=== PATIENT | female | born 1970 | race Caucasian/White ===

== ENCOUNTER 2023-01-01 09:52 | Outpatient (REF) | payer OTHER, SELFPAY ==
[2023-01-01 11:15] LABS: MANUAL DIFF FLAG NO
[2023-01-01 11:31] LABS: Basophils Percent Auto 0.5 % (0-2); Eosinophils Absolute Auto 0.1 X10*3/uL (0.0-0.4); Eosinophils Percent Auto 2.5 % (0-4); Hematocrit 39.5 % (37.0-47.0); Hemoglobin 12.9 g/dl (12.0-16.0); Imm Gran Abs Auto 0.01 X10*3/uL (0.00-0.03); Imm Gran Pct Auto 0.2 % (0.0-0.4); Lymphocytes Absolute Auto 1.5 X10*3/uL (1.2-4.9); Lymphocytes Percent Auto 26.6 % (20-40); Mean Corpuscular HGB Conc 32.7 g/dl (31.0-35.0); Mean Corpuscular Volume 88.8 fL (80.0-98.0); Mean Platelet Volume 10.5 fL (9.4-12.3); Monocytes Absolute Auto 0.3 X10*3/uL (0.1-1.2); Monocytes Percent Auto 5.3 % (2-11); Neutrophils Absolute Auto 3.6 x10*3/uL (2.0-8.3); Neutrophils Percent Auto 64.9 % (45-73); Platelet Count 204 X10*3/uL (160-400); Red Blood Count 4.45 X10*6/uL (4.20-5.50); White Blood Count 5.6 X10*3/uL (4.8-10.8)
[2023-01-01 11:37] LABS: Appearance Urine Cloudy; Color Urine Yellow; Glucose Urine UA Negative (Negative); Leukocyte Esterase Urine Negative (Negative); Nitrite Urine Negative (Negative); Urine Blood Negative (Negative); Urine Ketones Negative (Negative); Urine Protein Negative (Neg-Trace)
[2023-01-01 12:01] LABS: Alanine Aminotransferase 18 U/L (0-31); Albumin Level 4.2 g/dL (3.5-5.0); Alkaline Phosphatase 75 U/L (39-117); Anion Gap 12 (12-20); Aspartate Amino Transferase 19 U/L (5-31); Bilirubin Total 0.5 mg/dL (0.0-1.0); Blood Urea Nitrogen 13 mg/dL (9-16); Calcium 9.4 mg/dL (8.4-10.2); Carbon Dioxide 28 mmol/L (22-29); Chloride 106 mmol/L (96-108); Cholesterol 189 mg/dL; Estimated Glomerular Filt Rate > 60; Glucose Fasting 86 mg/dL (60-99); HDL Cholesterol 42 mg/dL; LDL Cholesterol Calculated 125 mg/dl; Potassium 4.3 mmol/L (3.3-5.1); Sodium 142 mmol/L (135-145); Total Protein 6.8 g/dL (6.5-8.0); Triglycerides 110 mg/dL
== END 2023-01-01 09:53 | disposition home or self-care (01) ==
LOC: HO.WFDLDS 09:52
PROVIDERS: Visit Provider Nurse Practitioner Family
DX: Z00.00 Encounter for general adult medical examination without abnormal findings (principal)
CPT/HCPCS: 36415; 80053; 80061; 81003; 84443; 85025

== ENCOUNTER 2023-03-18 10:16 | Outpatient (AMB) | payer OTHER, SELFPAY ==
[2023-03-18 10:19] VITALS: BP 126/68; PULSE 96; RESP 14; TEMP 36.6; O2SAT 99
--- NOTE | 2023-03-18 10:19 | MHC.PC.OV ---
Vital Signs 03/18/23 10:19 Height 5 ft 3 in BMI Reason not done Patient refused/unable BP 126/68 Blood Pressure Location Rt brachial Position Sitting Respiration 14 Pulse 96 Pulse Source Pulse Oximeter Temp 97.8 F Temp Source Temporal Artery Scan Pulse Oximetry (%) 99 Oxygen Delivery Method Room Air Intake Visit Reasons: [facility] sore throat x2 weeks Intake Note: Patient is here for a follow up from the emergency department at [facility] on 03/16/2023 for a sore throat. Patient was found to have acute pharyngitis with a negative rapid strep and a negative strep culture. Patient reports concerns for her sore throat x14 days. Patient reports seeing lumps on trhe back of her throat this morning. Patient reports symptoms of difficulty swallowing and eating due to pain. Patient reports taking 2 tylenol and 2 ibuprofen does not relieve the pain. Med Asst Required: No Accompanied by: Daughter Allergies No Known Allergies Allergy (Verified 03/18/23 10:58) Medication List - Last Reconciled 03/18/23 by Philly Goldberg CNP fluoxetine 40 mg PO DAILY gabapentin 800 mg PO TID hydroxyzine pamoate 25 mg PO BID PRN lurasidone 20 mg PO DAILY simvastatin 20 mg PO BEDTIME 30 days Tobacco use date assessed: 01/01/23 Dental Screening Dental Screen Date: 03/18/23 Did you have a dental visit in the last 12 months?: Yes Did you have a dental problem in the last 6 months where you did not have access to dental care?: No Was dental information given to patient?: Patient declined HPI HPI Comments History of Present Illness Details 52-year-old female presents for a follow-up visit She was recently evaluated at [facility] for sore throat on 03/16/2023. Rapid strep test and culture were negative. She was diagnosed with acute viral pharyngitis. She reports continued sore throat. She notes she noticed lumps to the back of her throat this morning. She reports associated pain with swallowing. She states she has had the pain for the past 2 weeks. She states her symptoms are refractory to Tylenol ibuprofen. No headache, fever, chills, body aches, fatigue, weakness. Denies sick contact. [facility] Social History Housing: House Patient Tobacco Use Status: Never used Tobacco e-Cigarette/Vaping Use: Never Used Substance Use Type: Marijuana service: No Current occupational status: disabled Current occupation: Disability Current occupational exposures/hazards: No Cognitive needs: No Hearing needs: No Vision needs: No Questionnaire Thrive Questionnaire Date Thrive assessed: 01/01/23 MEAGAN-7 AMB Questionnaire MEAGAN-7 Date MEAGAN - 7 assessed: 01/29/23 Source: Developed by Drs. Donnie Ohara, Nelsy Campa, Zafar Tejeda and colleagues, with an educational serg from [employer]. Review of Systems Const Details: Const Denies chills, Denies fatigue, Denies fever(s), Denies headache(s) and Denies weakness ENT Reports as per HPI Card Denies chest pain, Denies lightheadedness, Denies dyspnea and Denies other (Palpitations) Resp Denies cough, Denies dyspnea, Denies wheezing and Denies other ( shortness of breath) GI Denies abdominal pain, Denies melena, Denies hematochezia, Denies change in bowel habits, Denies dyspepsia and Denies nausea Denies hematuria and Denies dysuria Musc Denies abnormal gait, Denies myalgias, Denies arthralgias, Denies numbness and Denies tingling Skin/Breast Denies rash, Denies unusual bruising and Denies wounds Neuro Denies abnormal gait, Denies dizziness, Denies headache(s), Denies memory loss, Denies numbness, Denies Sensory deficit (Neuro), Denies tingling and Denies weakness Psych Denies anxiety, Denies depression, Denies memory loss Endo Denies cold intolerance, Denies fatigue, Denies heat intolerance, Denies polydipsia and Denies polyuria Aller/Immun Denies wheezing Physical exam (Primary Care) Vital Signs: Last Vital Signs Temp 97.8 F 03/18/23 10:19 Pulse 96 03/18/23 10:19 Resp 14 03/18/23 10:19 BP 126/68 03/18/23 10:19 Pulse Ox 99 03/18/23 10:19 Oxygen Delivery Method Room Air 03/18/23 10:19 Tobacco/Smoking Status: Tobacco use Status Tobacco use date assessed 01/01/23 03/18/23 10:19 Patient Tobacco Use Status Never used Tobacco 03/18/23 10:19 e-Cigarette/Vaping Use Never Used 03/18/23 10:19 Thrive Assessment: Date of Thrive Assessment Date Thrive assessed 01/01/23 03/18/23 10:19 Const Other: General: no acute distress and well developed Nutritional Appearance: well nourished Orientation/consciousness: patient oriented x3 HENMT Head is normocephalic Bilateral ear canal and TM are normal Nasal turbinates and oropharynx are pink and moist; tonsil without swelling, edema, patches, or exudate Sinuses are nontender with palpation No auricular or cervical lymphadenopathy Eyes General: appearance normal, both eyes and all related structures Pupils: Equal, round and reactive pupils present EOM: EOMs intact bilaterally Resp Effort & Inspection: normal respiratory effort Auscultation: clear to auscultation bilaterally Cardio Rate: regular rate Rhythm: regular rhythm Heart sounds: S1 normal heart sound present, S2 normal heart sound present, no gallops, no murmurs and no rubs GI Palpation (GI): No Abdominal aortic bruit present, Soft to palpation, nontender, No hepatosplenomegaly present and No Rebound tenderness present Auscultation: normal bowel sounds General: Yes no CVA tenderness Back/Spine/Pelvis Back: no CVA tenderness Cervical Spine: cervical ROM normal and No Cervical spine tenderness Thoracic/Lumbar Spine: thoraco-lumbar ROM normal, No pain with thoraco-lumbar ROM, No thoracic spinal tenderness and No lumbar spinal tenderness Extrem General: Yes normal to inspection, No edema and No calf tenderness Skin General: warm and dry. Normal skin color. Normal skin turgor Lesions: no lesions Rashes: no rashes Trauma: no lacerations or abrasions Wounds: no wounds Nails: normal Neuro General: patient oriented x3, gait normal and no focal neuro deficit Cranial nerves: Yes Equal, round and reactive pupils present Cognition (Neuro): normal cognition Gait exam (Neuro): Normal gait present Sensory Exam: No Sensory deficit (Neuro) Psych Appearance: grossly normal Affect: normal affect Attitude: cooperative Thought process: Normal thought process present Results AMB Rapid Strep AMB Rapid Strep Negative Last Edit by Nanette Love on 03/18/23 11:45 Results Reviewed Results Reviewed: Laboratory Last Values Strep Scn Rapid Clinic Negative 03/18/23 11:45 Assessment and Plan Assessment & Plan (1) Sore throat: Code(s): J02.9 - Acute pharyngitis, unspecified Plan: Negative rapid strep test No evidence of strep infection Likely viral pharyngitis although possible unknown bacterial pharyngitis Z-Roman ordered. Take as prescribed Continue to take Tylenol ibuprofen for pain or discomfort May gargle with salt water Adequate hydration encouraged Return with worsening or new symptoms Verbalized understanding and agreed with treatment plan. Orders: Orders AMB Rapid Strep Screen Today Z13.9 - Encounter for screening, unspecified Medications: New azithromycin (Zithromax Z-Roman) For 250 mg dose pack: take 500 mg today (day 1), then 250 mg for 4 days (days 2-5) PO 6 tabs 0RF Coding Level of Care Code Est Pt Level 3 (92779) Diagnoses Sore throat J02.9 Time Spent (min) 25
== END 2023-03-18 11:42 | disposition home or self-care (01) ==
PROVIDERS: PCP Nurse Practitioner Family; Visit Provider Nurse Practitioner Family
DX: J02.9 Acute pharyngitis, unspecified (principal)
CPT/HCPCS: 87880; 99213

== ENCOUNTER 2024-03-25 08:49 | Outpatient (REF) | payer OTHER, SELFPAY ==
[2024-03-25 11:08] LABS: MANUAL DIFF FLAG NO
[2024-03-25 11:18] LABS: Basophils Percent Auto 0.5 % (0-2); Eosinophils Absolute Auto 0.2 X10*3/uL (0.0-0.4); Eosinophils Percent Auto 3.1 % (0-4); Hematocrit 39.7 % (37.0-47.0); Hemoglobin 13.1 g/dl (12.0-16.0); Imm Gran Abs Auto 0.01 X10*3/uL (0.00-0.03); Imm Gran Pct Auto 0.2 % (0.0-0.4); Lymphocytes Absolute Auto 1.9 X10*3/uL (1.2-4.9); Lymphocytes Percent Auto 30.9 % (20-40); Mean Corpuscular Hemoglobin 29.7 pg (27.0-33.0); Mean Platelet Volume 10.4 fL (9.4-12.3); Monocytes Absolute Auto 0.3 X10*3/uL (0.1-1.2); Monocytes Percent Auto 5.3 % (2-11); Neutrophils Absolute Auto 3.7 x10*3/uL (2.0-8.3); Platelet Count 235 X10*3/uL (160-400); Red Blood Count 4.41 X10*6/uL (4.20-5.50); Red Cell Distribution Width 12.2 % (11.0-16.0); White Blood Count 6.2 X10*3/uL (4.8-10.8)
[2024-03-25 11:50] LABS: Alanine Aminotransferase 30 U/L (0-31); Albumin Level 4.4 g/dL (3.5-5.0); Alkaline Phosphatase 71 U/L (39-117); Anion Gap 10 (12-20); Aspartate Amino Transferase 25 U/L (5-31); Bilirubin Total 0.7 mg/dL (0.0-1.0); Blood Urea Nitrogen 14 mg/dL (9-16); Calcium 9.8 mg/dL (8.4-10.2); Carbon Dioxide 30 mmol/L (22-29); Chloride 105 mmol/L (96-108); Cholesterol 167 mg/dL (<200); Estimated Glomerular Filt Rate > 60; Glucose Fasting 92 mg/dL (60-99); HDL Cholesterol 40 mg/dL (>40); LDL Cholesterol Calculated 102 mg/dL (<100); Potassium 3.9 mmol/L (3.3-5.1); Sodium 141 mmol/L (135-145); Total Protein 7.3 g/dL (6.5-8.0); Triglycerides 128 mg/dL (<150)
[2024-03-25 12:06] LABS: TSH reflex Free T4 1.11 uIU/mL (0.32-4.0)
[2024-03-25 14:25] LABS: Appearance Urine Cloudy; Color Urine Yellow; Glucose Urine UA Negative (Negative); Leukocyte Esterase Urine Trace (Negative); Nitrite Urine Negative (Negative); PH >= 9.0 (5.0-9.0); UMIC TRIGGER UACC YES; Urine Blood Negative (Negative); Urine Ketones Negative (Negative); Urine Protein Trace mg/dL (Neg-Trace)
[2024-03-25 14:31] LABS: Bacteria Urine Trace (None Seen); Hyaline Casts Urine 0-2 /LPF (0-2); RBC Urine 0-2 /HPF (0-2); WBC Urine 0-5 /HPF (0-5)
[2024-03-25 14:55] LABS: Creatinine Urine 145.66 mg/dL; Microalbum/Creatinine Ratio Ur 4.1 ug/mg cr (<30)
== END 2024-03-25 08:50 | disposition home or self-care (01) ==
LOC: HO.WFDLDS 08:49
PROVIDERS: Visit Provider Nurse Practitioner Family
DX: Z00.00 Encounter for general adult medical examination without abnormal findings (principal)
CPT/HCPCS: 36415; 80053; 80061; 81001; 82043; 82570; 84443; 85025

== ENCOUNTER 2024-03-29 10:31 | Outpatient (AMB) | payer OTHER, SELFPAY ==
--- NOTE | 2024-03-29 10:33 | A.OFFPC_ITS ---
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 Is last menstrual period known: No Post menopausal: No Patient : No Allergies No Known Allergies Allergy (Verified 03/29/24 10:49) Medication List - Last Reconciled 03/29/24 by Philly Goldberg CNP fluoxetine 80 mg PO QAM hydroxyzine pamoate 25 mg PO BID PRN lurasidone 20 mg PO DAILY simvastatin 20 mg PO BEDTIME 30 days Tobacco use date assessed: 03/29/24 Dental Screening Dental Screen Date: 03/29/24 Did you have a dental visit in the last 12 months?: Yes Did you have a dental problem in the last 6 months where you did not have access to dental care?: No Was dental information given to patient?: Patient has dentist HPI HPI Comments History of Present Illness Details 53-year-old female presents for an exten ded physical exam She has past medical history significant for fibromyalgia, hyperlipidemia, obesity, generalized anxiety disorder, major depressive disorder, and bipolar disorder She admits to taking her medications as prescribed without adverse reactions She is followed by a therapist and psychiatrist at [facility], and her psychotropic medications are managed by Psychiatry. She sees her therapist weekly and ps ychiatrist every three months She notes that her father 8 months ago after suffering from chronic illness. Her mother had had a stroke 3 months after her father's . She reports significant stress and anxiety as a results of family issues. She notes that her mental health has not been great. She notes that she had a close relationship with her father and continues to have vivid dreams of him. His symptoms have been gradually improving She notes that she has been making healthy dietary changes, sleeps 4-5 hours nightly (she notes that some days are better than others). She exercise on her treadmill three times weekly and walks every other day She states that she has not had a menstrual cycle in over a year Nonsmoker. Does not drink alcohol. She smokes a couple of hits of cannabis every night and has been smoking for a long time She states she had colonoscopy 3 years ago at [facility]: normal. She will sign a consent to obtain records Her last mammogram was 2 year ago: normal She is unsure of her last pap smear test which was normal. 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 She has not received the shingrex vaccines and declines this [facility] Medical History (Updated 03/29/24 @ 11:43 by Philly Goldberg CNP) No pertinent family history No pertinent past medical history Surgical History (Updated 03/30/23 @ 14:59 by Nanette Love CMA) No pertinent past surgical history Family History (Updated 03/29/24 @ 10:44 by Manuela Del Angel) Sister Substance abuse FH: mental illness Mother FH: mental illness Social History Housing: House Patient Tobacco Use Status: Never used Tobacco e-Cigarette/Vaping Use: Never Used Substance Use Type: Marijuana service: No Current occupational status: disabled Current occupation: Disability Current occupational exposures/hazards: No Cognitive needs: No Hearing needs: No Vision needs: No Questionnaire PHQ-9 Over the last 2 weeks, how often have you been bothered by any of the following problems? 1. Little interest or pleasure in doing things: more than half the days 2. Feeling down, depressed, or hopeless: several days 3. Trouble falling or staying asleep, or sleeping too much: nearly every day 4. Feeling tired or having little energy: more than half the days 5. Poor appetite or overeating: nearly every day 6. Feeling bad about yourself - or that you are a failure or have let yourself or your family down: more than half the days 7. Trouble concentrating on things, such as reading the newspaper or watching television: nearly every day 8. Moving or speaking so slowly that other people could have noticed. Or the opposite - being so fidgety or restless that you have been moving around a lot more than usual: nearly every day 9. Thoughts that you would be better off or of hurting yourself in some way: not at all Total score: 19 Depression Screening Interpretation: Positive Depression Screening Follow-up: Existing condition and In treatment Depression Screening Done: Yes [id number] - PHQ-9 Billing: Yes Source: Developed by Drs. Donnie Ohara, Zafar Reeder and colleagues, with an educational serg from [email or web address]. Thrive Questionnaire Date Thrive assessed: 03/29/24 I am a: Patient What is your living situation today?: I have a steady place to live Within the past 12 months, did the food you bought not last and you didn't have the money to get more?: Never true Within the past 12 months, did you worry whether your food would run out before you got money to buy more?: Never true Do you have trouble paying for medicines?: No Do you have trouble getting transportation to medical appointments?: No Do you have trouble paying your heating and electricity bill?: Yes Do you have trouble taking care of your child, family member or friend?: No Do you have trouble with day-to-day activities such as bathing, preparing meals, shopping, managing finances, etc.?: Yes Are you currently unemployed and looking for a job?: Yes Are you interested in more education?: No Please select the resources that you would like help with: None Currently or been in a relationship where the following occur: No concerns reported THRIVE Score: 1 AUDIT C Alcohol Use Questionnaire (AUDIT-C) 1. How often do you have a drink containing alcohol?: Never Total Score: 0 Score Reviewed/Action Taken: Yes MEAGAN-7 AMB Questionnaire MEAAGN-7 Date MEAGAN - 7 assessed: 03/29/24 Feeling nervous, anxious, or on edge: 3 = Nearly every day Not being able to stop or control worryin = Nearly every day Worrying too much about different things: 3 = Nearly every day Trouble relaxin = Nearly every day Being so restless that it is hard to sit still: 2 = More than half the days Becoming easily annoyed or irritable: 3 = Nearly every day Feeling afraid as if something awful might happen: 2 = More than half the days Total MEAGAN-7 score (0-4 normal; 5-9 mild; 10-14 moderate; 15-21 severe): 19 Source: Developed by Nelsy Bobby Kurt Kroenke and colleagues, with an educational serg from [email or web address]. MEAGAN-7 Assessment Billing MEAGAN-7 Assessment Tool: MEAGAN-7 Assessment [id number] Review of Systems Const Details: Denies chills, Denies fatigue, Denies fever(s), Denies headache(s) and Denies weakness HEENT Denies change in vision, Denies dizziness, Denies headache(s), Denies hearing loss, Denies nasal congestion, Denies sinus pain, Denies sinus pressure and Denies sore throat Card Denies chest pain, Denies lightheadedness, Denies dyspnea and Denies other (palpitations) Resp Denies cough, Denies dyspnea and Denies wheezing GI Denies abdominal pain, Denies melena, Denies hematochezia, Denies change in bowel habits, Denies dyspepsia and Denies nausea Denies hematuria and Denies dysuria Musc Denies abnormal gait, Denies myalgias, Denies arthralgias, Denies numbness and Denies tingling Skin/Breast Denies rash, Denies unusual bruising and Denies wounds Neuro Denies abnormal gait, Denies dizziness, Denies headache(s), Denies memory loss, Denies numbness, Denies Sensory deficit (Neuro), Denies tingling and Denies weakness Psych Denies anxiety, Denies depression and Denies memory loss Endo Denies cold intolerance, Denies fatigue, Denies heat intolerance, Denies polydipsia and Denies polyuria Marlon/Lymph Denies easy bleeding and Denies easy bruising Aller/Immun Denies wheezing Physical exam (Primary Care) Tobacco/Smoking Status: Tobacco use Status Tobacco use date assessed 03/29/24 03/29/24 10:44 Patient Tobacco Use Status Never used Tobacco 03/29/24 10:36 e-Cigarette/Vaping Use Never Used 03/29/24 10:36 Depression Screening Interpretation: Positive Depression Screening Follow-up: Existing condition and In treatment Thrive Assessment: Date of Thrive Assessment Date Thrive assessed 01/01/23 03/29/24 10:36 Currently or been in a relationship where the following occur: No concerns reported Const Other: General: no acute distress, well developed, alert and awake Nutritional Appearance: well nourished Orientation/consciousness: patient oriented x3 HENMT Head: Yes normocephalic and Yes atraumatic Ears: hearing grossly normal bilaterally and TM's normal bilaterally General nose exam: Normal external nose present and Normal nares present Mouth: Normal oral and palatal mucosa present and moist mucous membranes Teeth and gingiva: dentition normal Throat: Yes oropharynx normal Eyes Pupils: Equal, round and reactive pupils present and Pupil accommodation reflex normal EOM: EOMs intact bilaterally Neck Neck: Yes normal visual inspection, Yes no lymphadenopathy and Yes trachea midline Thyroid: Thyroid normal Carotids: no bruits Lymphatic: no lymphadenopathy noted Chest Chest palpation & inspection: normal inspection of the chest Resp Effort & Inspection: normal respiratory effort Auscultation: clear to auscultation bilaterally Cardio Rate: regular rate Rhythm: regular rhythm Heart sounds: S1 normal heart sound present, S2 normal heart sound present, no gallops, no murmurs and no rubs Bruits: no abdominal aortic bruits and no carotid bruits GI Palpation (GI): No Abdominal aortic bruit present, Soft to palpation, nontender, No hepatosplenomegaly present and No Rebound tenderness present Auscultation: normal bowel sounds General: Yes no CVA tenderness Back/Spine/Pelvis Back: no CVA tenderness Cervical Spine: cervical ROM normal and No Cervical spine tenderness Thoracic/Lumbar Spine: thoraco-lumbar ROM normal, No pain with thoraco-lumbar ROM, No thoracic spinal tenderness and No lumbar spinal tenderness Skin General: warm and dry. Normal skin color. Normal skin turgor Lesions: no lesions Rashes: no rashes Trauma: no lacerations or abrasions Wounds: no wounds Nails: normal Neuro General: patient oriented x3, gait normal and CN's II-XI intact bilaterally Cranial nerves: Yes Equal, round and reactive pupils present Cognition (Neuro): normal cognition Gait exam (Neuro): Normal gait present Motor exam (neuro): 5/5 motor strength present throughout Sensory Exam: No Sensory deficit (Neuro) Deep tendon reflexes (DTR's): Right patellar reflex intensity grade: 2+ and Left patellar reflex intensity grade: 2+ Extrem General: Yes normal to inspection, No edema and No calf tenderness Psych Appearance: grossly normal Affect: normal affect Attitude: cooperative Thought process: Normal thought process present Assessment and Plan Assessment & Plan (1) Normal physical examination, routine: Code(s): Z00.00 - Encounter for general adult medical examination without abnormal findings Plan: No significant physical restrictions or limitations noted Continue current treatment regimen Healthy diet and routine exercise encouraged Continue follow-up with therapist and psychiatrist as planned Advised to limit or avoid smoking cannabis which may interfere with her psychotropic medications Advised to get fasting lipid panel blood work done a few days before her next visit Follow-up in 6 months for hyperlipidemia or return sooner with symptoms or concerns Verbalized understanding and agreed with treatment plan (2) Hyperlipidemia: Code(s): E78.5 - Hyperlipidemia, unspecified Plan: Recent labs reviewed with the patient; unremarkable findings except for slightly low HDL, 40 Advised to limit foods high in saturated fat and avoid foods high trans fat Routine exercise encouraged Advised to fast for 10-12 hours, may drink water only, and get blood work done before her next visit Follow-up in 6 months Verbalized understanding and agreed with the treatment plan (3) Generalized anxiety disorder: Code(s): F41.1 - Generalized anxiety disorder Plan: Reports significant stress and anxiety related to the of her father and her mother who had stroke following her father's . She notes that her symptoms have been gradually improving PHQ-9 and MEAGAN-7 scores revealed moderately severe depression and severe anxiety respectively Continue current treatment regimen Routine exercise encouraged Continue follow-up with therapist and psychiatrist as planned Verbalized understanding and agreed with the treatment plan (4) Major depressive disorder: Code(s): F32.9 - Major depressive disorder, single episode, unspecified Plan: As above (5) Grieving: Code(s): F43.21 - Adjustment disorder with depressed mood Plan: As above (6) Pap smear for cervical cancer screening: Code(s): Z12.4 - Encounter for screening for malignant neoplasm of cervix Plan: She is unsure of her last Pap smear test which was normal 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 Encouraged to call schedule an appointment (7) Menopause: Code(s): Z78.0 - Asymptomatic menopausal state Plan: She has not had a menstrual cycle in over a year (8) Obesity (BMI 30-39.9): Code(s): E66.9 - Obesity, unspecified Plan: She currently weighs 184 lb, BMI is 31.7 Declines referral to dietitian or weight management and notes she would continue with healthy lifestyle changes Healthy diet and routine exercise encouraged She may notify her PCP if she changes her mind on a referral to with management or dietitian Follow-up with symptoms or concerns Verbalized understanding and agreed with the treatment plan Orders: Orders AMB Urinalysis Dipstick Today R39.9 - Unspecified symptoms and signs involving the genitourinary system Lipid Panel 6 Months E78.5 - Hyperlipidemia, unspecified MM screening mammo BI Today Z12.31 - Encounter for screening mammogram for malignant neoplasm of breast 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
[2024-03-29 10:50] VITALS: BP 128/72; PULSE 71; RESP 16; TEMP 36.4; O2SAT 98; BMI 31.7
== END 2024-03-29 11:27 | disposition home or self-care (01) ==
PROVIDERS: PCP Nurse Practitioner Family; Visit Provider Nurse Practitioner Family
DX: Z00.00 Encounter for general adult medical examination without abnormal findings (principal); F32.9 Major depressive disorder, single episode, unspecified; E66.9 Obesity, unspecified; Z68.31 Body mass index [BMI] 31.0-31.9, adult; E78.5 Hyperlipidemia, unspecified; F41.1 Generalized anxiety disorder; F43.21 Adjustment disorder with depressed mood; Z78.0 Asymptomatic menopausal state
CPT/HCPCS: 96127; 99214; 99396

== ENCOUNTER 2024-03-29 10:44 | Outpatient (REF) | payer OTHER, SELFPAY | END 2024-03-29 10:45 | disposition home or self-care (01) | LOC: HO.LAB 10:44 | PROVIDERS: Visit Provider Nurse Practitioner Family | DX: Z13.89 Encounter for screening for other disorder (principal) ==

== ENCOUNTER 2024-06-01 07:43 | Outpatient (AMB) | payer OTHER, SELFPAY ==
--- NOTE | 2024-06-01 07:57 | A.OFFVIS_ITS ---
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 Patient reports her pain has been present for over a year. She may possibly have injured her knee with working out. She was seen at [facility] where x-rays were taken and told having a soft tissue injury. No other tx. States when knee pain is present she will have lower back pain. Her pain radiates from the posterior aspect to the anterior aspect of knee and shoots down to her foot. She has constant spasms in her foot as well as numbness and tingling. Finds no relief with ibuprofen. Finds little relief with hot/cold compress and use of a knee sleeve. 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 No specific injury she can recall. She has been experiencing pain for about a year . She states she use to do a lot of strenuous work/working out but cannot recall an injury. She was seen at [facility] and was told no fractures. She states the pain come and goes but over the last three months the pain has increased. She states the pain is worse with bending and stairs. She does notice there is some clicking in the knee. No treatment to date on the right knee. she does try heat and ice, she has tried a compression sleeve. [facility] Medical History (Updated 06/01/24 @ 08:53 by Sophia Buenrostro PA-C) No pertinent family history No pertinent past medical history Surgical History No pertinent past surgical history Family History (Updated 03/29/24 @ 10:44 by Manuela Del Angel MA) Sister Substance abuse FH: mental illness Mother FH: mental illness Social History Housing: House Patient Tobacco Use Status: Never used Tobacco e-Cigarette/Vaping Use: Never Used Substance Use Type: Marijuana service: No Current occupational status: disabled Current occupation: Disability Current occupational exposures/hazards: No Cognitive needs: No Hearing needs: No Vision needs: No Review of Systems Const All systems reviewed & are unremarkable except as noted in HPI and below Physical Exam Vital Signs: BMI result Body Mass Index 31.6 Const General: cooperative and no acute distress Orientation/consciousness: patient oriented x3 Resp Effort & Inspection: normal respiratory effort and able to speak in complete sentences Cardio Peripheral pulses: Peripheral pulses 2+ throughout Neuro General: patient oriented x3 Extrem Other: Right knee skin intact, no erythema, mild joint effusion. Tenderness along the medial joint line and lateral retropatellar tenderness. ROM full with crepitus. Negative steinmans. No ligamentous laxity. NVI. Office Procedures Joint Injection/Aspiration Joint Injection/Aspiration Details: 35 cc joint fluid aspirated Primary Site: right knee Prep: site was prepped using aseptic technique and injection warnings given Injected: 80 mg of, DepoMedrol, with 8 mL of, 1% plain lidocaine and in the joint Approach Used: lateral parapatellar Procedure: The patient tolerated the procedure well Coding 87169 - Glenohumeral/Tronchanteric Bursa/Intraarticular Procedure code (CPT) selection complete Results Reviewed Results Reviewed: X-rays of the right knee obtained in the office today show mild medial compartment osteoarthritis with mild lateralization of the patella. Assessment & Plan Assessment & Plan (1) Osteoarthritis of right knee: Code(s): M17.11 - Unilateral primary osteoarthritis, right knee Category: Medical Qualifiers: Osteoarthritis type: primary Qualified Code(s): M17.11 - Unilateral primary osteoarthritis, right knee Plan: We discussed options today which include injection/aspiration which she did consent to today. 35 cc of joint fluid was aspirated from the knee today. 80 mg of Depo-Medrol with 1% lidocaine was reinjected. She tolerated the procedure well. I did send a prescription for Celebrex to the pharmacy which she will take twice a day for 2 weeks to help with inflammation and a course of physical therapy was ordered. If Symptoms persist or worsen over the next 6 weeks she will contact us otherwise follow up as needed. Orders: Orders XR knee RT 3V Today M17.11 - Unilateral primary osteoarthritis, right knee XR knee LT 1V Today M25.562 - Pain in left knee Medications: New celecoxib (Celebrex) 200 mg PO BID 60 caps 3RF 30 days Coding Level of Care Code New Pt Level 3 (34121) Complex EM visit Add On G2211 Diagnoses Primary osteoarthritis of right knee M17.11 Osteoarthritis type: primary CPT Codes Coding - Joint 7: 36348 - Glenohumeral/Tronchanteric Bursa/Intraarticular ([id number])
[2024-06-01 08:08] VITALS: BMI 31.6
== END 2024-06-01 08:53 | disposition home or self-care (01) ==
PROVIDERS: PCP Nurse Practitioner Family; Visit Provider Physician Assistant
DX: M17.11 Unilateral primary osteoarthritis, right knee (principal)
CPT/HCPCS: 20610; 99203

== ENCOUNTER 2024-06-01 07:43 | Outpatient (REF) | payer OTHER, SELFPAY | END 2024-06-01 07:44 | disposition home or self-care (01) | LOC: HO.HOSX 07:43 | PROVIDERS: PCP Nurse Practitioner Family; Visit Provider Physician Assistant | DX: M17.11 Unilateral primary osteoarthritis, right knee (principal); M25.562 Pain in left knee | CPT/HCPCS: 20610; 73560; 73562; 99202; J1010; J2003 ==

== ENCOUNTER 2024-06-20 10:32 | Outpatient (REF) | payer OTHER, SELFPAY | END 2024-06-20 10:33 | disposition home or self-care (01) | LOC: HO.HOSX 10:32 | DX: Z13.89 Encounter for screening for other disorder (principal) ==

== ENCOUNTER 2024-10-03 08:24 | Outpatient (AMB) | payer OTHER, SELFPAY ==
--- NOTE | 2024-10-03 08:25 | A.OFFPC_ITS ---
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 Is last menstrual period known: No Post menopausal: No Patient : No Allergies No Known Allergies Allergy (Verified 10/03/24 08:34) Medication List - Last Reconciled 10/03/24 by Philly Goldberg CNP celecoxib (Celebrex) 200 mg PO BID 30 days fluoxetine 80 mg PO QAM fluoxetine 20 mg PO DAILY hydroxyzine pamoate 25 mg PO BID PRN simvastatin 20 mg PO BEDTIME 90 days Tobacco use date assessed: 10/03/24 Dental Screening Dental Screen Date: 10/03/24 Did you have a dental visit in the last 12 months?: No Did you have a dental problem in the last 6 months where you did not have access to dental care?: No Was dental information given to patient?: Patient has dentist HPI HPI Comments History of Present Illness Details 54-year-old female presents for hyperlip idemia follow-up. She admits to taking simvastatin as prescribed without adverse reactions. She offers no complaints and denies acute symptoms at this time. She has been making healthy dietary choices. Her anxiety and depressive symptoms have been controlled. She returned to work in 05/2024 after not working for 4 years due to anxiety and depression. 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 She is followed by a therapist every other week and psychiatrist every 3 months. She did not get lipid panel blood work done for this visit as planned but will do so today. No acute symptoms at this time. [facility] Medical History (Updated 06/01/24 @ 08:53 by Sophia Buenrostro PA-C) No pertinent family history No pertinent past medical history Surgical History No pertinent past surgical history Family History (Updated 03/29/24 @ 10:44 by Manuela Del Angel MA) Sister Substance abuse FH: mental illness Mother FH: mental illness Social History Housing: House Patient Tobacco Use Status: Never used Tobacco e-Cigarette/Vaping Use: Never Used Substance Use Type: Marijuana service: No Current occupational status: disabled Current occupation: Disability Current occupational exposures/hazards: No Cognitive needs: No Hearing needs: No Vision needs: No Questionnaire Thrive Questionnaire Date Thrive assessed: 09/26/24 I am a: Patient What is your living situation today?: I have a steady place to live Within the past 12 months, did the food you bought not last and you didn't have the money to get more?: Never true Within the past 12 months, did you worry whether your food would run out before you got money to buy more?: Never true Do you have trouble paying for medicines?: No Do you have trouble getting transportation to medical appointments?: No Do you have trouble paying your heating and electricity bill?: No Do you have trouble taking care of your child, family member or friend?: No Do you have trouble with day-to-day activities such as bathing, preparing meals, shopping, managing finances, etc.?: No Are you currently unemployed and looking for a job?: Yes Are you interested in more education?: No Currently or been in a relationship where the following occur: I choose not to answer THRIVE Score: 0 AUDIT C Alcohol Use Questionnaire (AUDIT-C) 1. How often do you have a drink containing alcohol?: Never Total Score: 0 MEAGAN-7 AMB Questionnaire MEAGAN-7 Date MEAGAN - 7 assessed: 03/29/24 Feeling nervous, anxious, or on edge: 2 = More than half the days Not being able to stop or control worryin = Several days Worrying too much about different things: 2 = More than half the days Trouble relaxin = Nearly every day Being so restless that it is hard to sit still: 3 = Nearly every day Becoming easily annoyed or irritable: 3 = Nearly every day Feeling afraid as if something awful might happen: 3 = Nearly every day Total MEAGAN-7 score (0-4 normal; 5-9 mild; 10-14 moderate; 15-21 severe): 17 Source: Developed by Drs. Donnie Ohara, Nelsy Campa, Zafar Tejeda and colleagues, with an educational serg from [employer]. Review of Systems Const Details: Const Denies chills, Denies fatigue, Denies fever(s), Denies headache(s) and Denies weakness ENT Denies dizziness and Denies headache(s) Card Denies chest pain, Denies lightheadedness, Denies dyspnea and Denies other (Palpitations) Resp Denies cough, Denies dyspnea, Denies wheezing and Denies other ( shortness of breath) GI Denies abdominal pain, Denies melena, Denies hematochezia, Denies change in bowel habits, Denies dyspepsia and Denies nausea Denies hematuria and Denies dysuria Musc Denies abnormal gait, Denies myalgias, Denies arthralgias, Denies numbness and Denies tingling Skin/Breast Denies rash, Denies unusual bruising and Denies wounds Neuro Denies abnormal gait, Denies dizziness, Denies headache(s), Denies memory loss, Denies numbness, Denies Sensory deficit (Neuro), Denies tingling and Denies weakness Psych Denies anxiety, Denies depression, Denies memory loss Endo Denies cold intolerance, Denies fatigue, Denies heat intolerance, Denies polydipsia and Denies polyuria Aller/Immun Denies wheezing Physical exam (Primary Care) Tobacco/Smoking Status: Tobacco use Status Tobacco use date assessed 03/29/24 03/29/24 10:44 Patient Tobacco Use Status Never used Tobacco 03/29/24 10:36 e-Cigarette/Vaping Use Never Used 03/29/24 10:36 Thrive Assessment: Date of Thrive Assessment Date Thrive assessed 09/26/24 09/26/24 12:17 Currently or been in a relationship where the following occur: I choose not to answer Const Other: General: no acute distress and well developed Nutritional Appearance: well nourished Orientation/consciousness: patient oriented x3 HENMT Head: Yes normocephalic and Yes atraumatic Eyes General: appearance normal, both eyes and all related structures Pupils: Equal, round and reactive pupils present EOM: EOMs intact bilaterally Resp Effort & Inspection: normal respiratory effort Auscultation: clear to auscultation bilaterally Cardio Rate: regular rate Rhythm: regular rhythm Heart sounds: S1 normal heart sound present, S2 normal heart sound present, no gallops, no murmurs and no rubs GI Palpation (GI): No Abdominal aortic bruit present, Soft to palpation, nontender, No hepatosplenomegaly present and No Rebound tenderness present Auscultation: normal bowel sounds General: Yes no CVA tenderness Back/Spine/Pelvis Back: no CVA tenderness Cervical Spine: cervical ROM normal and No Cervical spine tenderness Thoracic/Lumbar Spine: thoraco-lumbar ROM normal, No pain with thoraco-lumbar ROM, No thoracic spinal tenderness and No lumbar spinal tenderness Extrem General: Yes normal to inspection, No edema and No calf tenderness Skin General: warm and dry. Normal skin color. Normal skin turgor Neuro General: patient oriented x3, gait normal and no focal neuro deficit Cranial nerves: Yes Equal, round and reactive pupils present Cognition (Neuro): normal cognition Gait exam (Neuro): Normal gait present Sensory Exam: No Sensory deficit (Neuro) Psych Appearance: grossly normal Affect: normal affect Attitude: cooperative Thought process: Normal thought process present Coding Level of Care Code Est Pt Level 3 (45190) Diagnoses Hyperlipidemia E78.5 Major depressive disorder F32.9 Generalized anxiety disorder F41.1 Assessment & Plan Assessment & Plan (1) Hyperlipidemia: Code(s): E78.5 - Hyperlipidemia, unspecified Category: Medical Plan: She did not perform lipid panel blood work for this visit as planned. Continue current treatment regimen. Encouraged to perform fasting lipid panel blood work. Will review results and make changes as needed. Follow-up for an extended physical exam on or after 03/29/2025. Return sooner with symptoms or concerns. Verbalized understanding and agreed with treatment plan. (2) Major depressive disorder: Code(s): F32.9 - Major depressive disorder, single episode, unspecified Category: Medical Plan: Controlled anxiety and depressive symptoms. Continue current treatment regimen. Routine exercise encouraged. Follow-up with therapist and psychiatrist as planned. Verbalized understanding and agreed with treatment plan. (3) Generalized anxiety disorder: Code(s): F41.1 - Generalized anxiety disorder Category: Medical Plan: Plan as above.
[2024-10-03 08:30] VITALS: BP 139/73; PULSE 70; RESP 16; TEMP 36.6; O2SAT 98; BMI 34.3
[2024-10-03 08:39] VITALS: BP 130/82
--- OUTSIDE RECORDS SUMMARY | 2024-10-03 08:43 | XMS_ITS | Clinical Summary ---
Author Organization [employer] Address [address] [facility] [address] [place] [address] Care Team Providers Care Painter Foreman Name Role Phone Unavailable Primary Care Provider Unavailabl e Encounters Date Type Department Care Team Description 09/02/2024 Telephone [facility] [address] [place] [phone] Black BDS [address] Devi comp wants new partials from Last 3 Months Social History Tobacco Use Types Packs/Day Years Used Date Smoking Tobacco: Never Assessed Comments Unknown Sex and Gender Information Value Date Recorded Sex Assigned at Female 09/02/2024 10:38 AM EST Legal Sex Female 10:33 AM EST Gender Identity Female 09/02/2024 10:38 AM EST Sexual Orientation Choose not to disclose 2024 10:38 AM EST Plan of Treatment Upcoming Encounters Date Type Department Care Team (Late st Contact Info) Description 10/26/2024 10:00 AM EDT Office Visit [facility] [address] [place] [address] [phone] Vero Schaefer [address] [place] [address] [phone] Health Maintenance Due Date Last Done Comments CT Colonography 1968 Colonoscopy 1968 Colorectal Cancer Screening 1968 Depression Screening 1968 FIT DNA/Cologuard 1968 FIT 1968 FOBT 1968 HIV Screening 1968 SDOH Screening 1968 Sigmoidoscopy 1968 Alcohol/Substance Use Screening 1980 Tobacco Screening 1980 Hepatitis C Screening 1986 DTaP/Tdap/Td Vaccines (1 - Tdap) 1987 Hepatitis B Vaccines (1 of 3 - 19+ 3-dose series) 1987 Pap Smear 1989 Cervical Cancer Screening 1998 HPV/Cotest 1998 Mammogram 2008 Pneumococcal Vaccine: 50+ Ye ars (1 of 1 - PCV) 2018 Zoster Vaccines (1 of 2) 2018 COVID-19 Vaccine (1 - 2023-2 5 season) 2024 Influenza Vaccine (#1) 2024 RSV Patients and Pa tients Aged 60 years or older (1 - 1-dose 75+ series) 2043 HIB Vaccines Aged Out No longer eligi ble based on patient's age to complete this topic HPV Vaccines Aged Out No longer eligi ble based on patient's age to complete this topic Hepatitis A Vaccines Aged Out No long er eligible based on patient's age to complete this topic IPV Vaccines Aged Out No longer eligi ble based on patient's age to complete this topic Meningococcal Vaccine Aged Out No ale giovanni eligible based on patient's age to complete this topic Pneumococcal Vaccine: Pediat rics (0 to 5 Years) and At-Risk Patients (6 to 49) Years) Aged Out No longer eligible b ased on patient's age to complete this topic RSV under 20 months Aged Out No longe r eligible based on patient's age to complete this topic Rotavirus Vaccines Aged Out No longer eligible based on patient's age to complete this topic Insurance [place]
--- OUTSIDE RECORDS SUMMARY | 2024-10-03 08:44 | XMS_ITS | Encounter Summary ---
Author Organization [employer] Address [address] [facility] [address] [place] [address] Care Team Providers Care Data Warehousing Manager Name Role Phone Unavailable Primary Care Provider Unavailabl e Reason for Visit * Reason Onset Date Comments Dr. Moriah hursts new partials 09/02/2024 Encounter Details Date Type Department Care Team (Late st Contact Info) Description 09/02/2024 Telephone [facility] [address] [place] [address] [phone] Francisco Black BDS [address] [place], [place] [phone] Dr. Moriah mcduffie wants new partials Social History Tobacco Use Types Packs/Day Years Used Date Smoking Tobacco: Never Assessed Comments Unknown Sex and Gender Information Value Date Recorded Sex Assigned at Female 09/02/2024 10:38 AM EST Legal Sex Female 10:33 AM EST Gender Identity Female 09/02/2024 10:38 AM EST Sexual Orientation Choose not to disclose 2024 10:38 AM EST documented as of this encounter Miscellaneous Notes * Telephone Encounter - Astrid Ingram - 09/02/2024 10:41 AM EST Patient not due for new partials until 06/09/2027. May want to pay out of pocket. Explained SFS application to patient DR documented in this encounter Plan of Treatment Upcoming Encounters Date Type Department Care Team (Late st Contact Info) Description 10/26/2024 10:00 AM EDT Office Visit [facility] [address] [place] [address] [phone] Vero Schaefer [address] [place], [place] [phone] documented as of this encounter Visit Diagnoses Not on filedocumented in this encounter
== END 2024-10-03 08:42 | disposition home or self-care (01) ==
PROVIDERS: PCP Nurse Practitioner Family; Visit Provider Nurse Practitioner Family
DX: E78.5 Hyperlipidemia, unspecified (principal); F32.9 Major depressive disorder, single episode, unspecified; F41.1 Generalized anxiety disorder

== ENCOUNTER → 2024-10-03 08:24 | Outpatient (BNVA) | payer OTHER, SELFPAY | PROVIDERS: PCP Nurse Practitioner Family; Visit Provider Nurse Practitioner Family | DX: E78.5 Hyperlipidemia, unspecified (principal); F32.9 Major depressive disorder, single episode, unspecified; F41.1 Generalized anxiety disorder | CPT/HCPCS: 99212 ==

== ENCOUNTER 2024-10-03 08:46 | Outpatient (REF) | payer OTHER, SELFPAY ==
--- OUTSIDE RECORDS SUMMARY | 2024-10-03 09:15 | XMS_ITS | Clinical Summary ---
Author Organization [employer] Address [address] [facility] [address] [place] [address] Care Team Providers Care Supervisor Bridges And Buildings Name Role Phone Unavailable Primary Care Provider Unavailabl e Encounters Date Type Department Care Team Description 09/02/[address] [facility] [address] [place] [address] [phone] [address] Black BDS [address]. Devi comp wants [...] Description 10/26/2024 10:00 AM EDT Office Visit [facility] [address] [place] [address] [phone] Vero Schaefer [address] [place] [address] [phone] Health Maintenance Due Date Last Done Comments [...]
--- OUTSIDE RECORDS SUMMARY | 2024-10-03 09:15 | XMS_ITS | Encounter Summary ---
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 Moriah mcduffie wants new partials Social [...] Description 10/26/2024 10:00 AM EDT Office Visit [facility] [address] [place] [address] [phone] Vero Schaefer [address] [place], [place] [phone] documented as of this encounter Visit Diagnoses Not on filedocumented in this encounter
[2024-10-03 12:43] LABS: Cholesterol 128 mg/dL (<200); HDL Cholesterol 40 mg/dL (>40); LDL Cholesterol Calculated 74 mg/dL (<100); Triglycerides 72 mg/dL (<150)
== END 2024-10-03 08:47 | disposition home or self-care (01) ==
LOC: HO.WFDLDS 08:46
PROVIDERS: Visit Provider Nurse Practitioner Family
DX: E78.5 Hyperlipidemia, unspecified (principal)
CPT/HCPCS: 36415; 80061

== ENCOUNTER 2024-11-21 08:22 | Outpatient (AMB) | payer OTHER, SELFPAY ==
--- NOTE | 2024-11-21 08:24 | A.OFFPC_ITS ---
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 Required: No Is last menstrual period known: No Post menopausal: No Patient : No Allergies No Known Allergies Allergy (Verified 11/21/24 08:53) Medication List - Last Reconciled 11/21/24 by Philly Goldberg CNP bupropion HCl XL 150 mg PO QAM celecoxib (Celebrex) 200 mg PO BID 30 days fluoxetine 80 mg PO QAM fluoxetine 20 mg PO DAILY hydroxyzine pamoate 25 mg PO BID PRN simvastatin 20 mg PO BEDTIME 90 days Tobacco use date assessed: 11/21/24 Dental Screening Dental Screen Date: 11/21/24 Did you have a dental visit in the last 12 months?: No Did you have a dental problem in the last 6 months where you did not have access to dental care?: No Was dental information given to patient?: Patient has dentist HPI HPI Comments History of Present Illness Details 54-year-old female presents for ED follo w-up visit. She was evaluated and treated at [facility] ED on 11/12/2024. She presented with abdominal pain, diarrhea, and vomiting. Labs were grossly within normal range. Negative viral testing. CT of abdomen and pelvis without acute abnormality of the abdomen and pelvis; small pericardial effusion noted. She was diagnosed with viral illness. She was discharged home on the same day. She notes that her abdominal pain, diarrhea, and vomiting completely subsided. She notes history of pericardial effusion about 7 years ago when she was ill with a chest cold. She saw Cardiology and echocardiogram was unremarkable. She requests an echocardiogram at this time. [facility] Medical History (Updated 11/21/24 @ 09:02 by Philly Goldberg CNP) No pertinent family history No pertinent past medical history Surgical History No pertinent past surgical history Family History (Updated 03/29/24 @ 10:44 by Manuela Del Angel MA) Sister Substance abuse FH: mental illness Mother FH: mental illness Social History Housing: House Patient Tobacco Use Status: Never used Tobacco e-Cigarette/Vaping Use: Never Used Substance Use Type: Marijuana Patient : No service: No Current occupational status: disabled Current occupation: Disability Current occupational exposures/hazards: No Cognitive needs: No Hearing needs: No Vision needs: No Questionnaire Thrive Questionnaire Date Thrive assessed: 09/26/24 I am a: Patient What is your living situation today?: I have a steady place to live Within the past 12 months, did the food you bought not last and you didn't have the money to get more?: Never true Within the past 12 months, did you worry whether your food would run out before you got money to buy more?: Never true Do you have trouble paying for medicines?: No Do you have trouble getting transportation to medical appointments?: No Do you have trouble paying your heating and electricity bill?: No Do you have trouble taking care of your child, family member or friend?: No Do you have trouble with day-to-day activities such as bathing, preparing meals, shopping, managing finances, etc.?: No Are you currently unemployed and looking for a job?: Yes Are you interested in more education?: No Please select the resources that you would like help with: None Currently or been in a relationship where the following occur: I choose not to answer THRIVE Score: 0 MEAGAN-7 AMB Questionnaire MEAGAN-7 Date MEAGAN - 7 assessed: 03/29/24 Source: Developed by Drs. Donnie Ohara, Nelsy Campa, Zafar Tejeda and colleagues, with an educational serg from [employer]. Review of Systems Const Details: Const Denies chills, Denies fatigue, Denies fever(s), Denies headache(s) and Denies weakness ENT Denies dizziness and Denies headache(s) Card Denies chest pain, Denies lightheadedness, Denies dyspnea and Denies other (Palpitations) Resp Denies cough, Denies dyspnea, Denies wheezing and Denies other ( shortness of breath) GI Denies abdominal pain, Denies melena, Denies hematochezia, Denies change in bowel habits, Denies dyspepsia and Denies nausea Denies hematuria and Denies dysuria Musc Denies abnormal gait, Denies myalgias, Denies arthralgias, Denies numbness and Denies tingling Skin/Breast Denies rash, Denies unusual bruising and Denies wounds Neuro Denies abnormal gait, Denies dizziness, Denies headache(s), Denies memory loss, Denies numbness, Denies Sensory deficit (Neuro), Denies tingling and Denies weakness Psych Denies anxiety, Denies depression, Denies memory loss Endo Denies cold intolerance, Denies fatigue, Denies heat intolerance, Denies polydipsia and Denies polyuria Aller/Immun Denies wheezing Physical exam (Primary Care) Vital Signs: Last Vital Signs Temp 98.1 F 11/21/24 08:29 Pulse 74 11/21/24 08:29 Resp 16 11/21/24 08:29 BP 131/69 11/21/24 08:29 Pulse Ox 97 11/21/24 08:29 Oxygen Delivery Method Room Air 11/21/24 08:29 BMI result Body Mass Index 30.9 Tobacco/Smoking Status: Tobacco use Status Tobacco use date assessed 11/21/24 11/21/24 08:32 Patient Tobacco Use Status Never used Tobacco 11/21/24 08:27 e-Cigarette/Vaping Use Never Used 11/21/24 08:27 Thrive Assessment: Date of Thrive Assessment Date Thrive assessed 09/26/24 11/21/24 08:27 Currently or been in a relationship where the following occur: I choose not to answer Const Other: General: no acute distress and well developed Nutritional Appearance: well nourished Orientation/consciousness: patient oriented x3 [facility] Head: Yes normocephalic and Yes atraumatic Eyes General: appearance normal, both eyes and all related structures Pupils: Equal, round and reactive pupils present EOM: EOMs intact bilaterally Resp Effort & Inspection: normal respiratory effort Auscultation: clear to auscultation bilaterally Cardio Rate: regular rate Rhythm: regular rhythm Heart sounds: S1 normal heart sound present, S2 normal heart sound present, no gallops, no murmurs and no rubs GI Palpation (GI): No Abdominal aortic bruit present, Soft to palpation, nontender, No hepatosplenomegaly present and No Rebound tenderness present Auscultation: normal bowel sounds General: Yes no CVA tenderness Back/Spine/Pelvis Back: no CVA tenderness Cervical Spine: cervical ROM normal and No Cervical spine tenderness Thoracic/Lumbar Spine: thoraco-lumbar ROM normal, No pain with thoraco-lumbar ROM, No thoracic spinal tenderness and No lumbar spinal tenderness Extrem General: Yes normal to inspection, No edema and No calf tenderness Skin General: warm and dry. Normal skin color. Normal skin turgor Neuro General: patient oriented x3, gait normal and no focal neuro deficit Cranial nerves: Yes Equal, round and reactive pupils present Cognition (Neuro): normal cognition Gait exam (Neuro): Normal gait present Sensory Exam: No Sensory deficit (Neuro) Psych Appearance: grossly normal Affect: normal affect Attitude: cooperative Thought process: Normal thought process present Coding Level of Care Code Est Pt Level 3 (25962) Diagnoses Abdominal pain R10.9 Hospital discharge follow-up Z09 Pericardial effusion I31.39 Assessment & Plan Assessment & Plan (1) Abdominal pain: Code(s): R10.9 - Unspecified abdominal pain Category: Medical Plan: Abdominal pain, vomiting, and diarrhea completely resolved. Follow-up as needed. Verbalized understanding and agreed with the plan. (2) Hospital discharge follow-up: Code(s): Z09 - Encounter for follow-up examination after completed treatment for conditions other than malignant neoplasm Category: Medical Plan: Plan as above. (3) Pericardial effusion: Code(s): I31.39 - Other pericardial effusion (noninflammatory) Category: Medical Plan: No shortness a breath or chest pain. Heart with regular rate and rhythm. Echocardiogram ordered. Will review results and make changes as needed. Verbalized understanding and agreed with the plan. Orders: Orders CA echo transthoracic complete Today I31.39 - Other pericardial effusion (noninflammatory)
[2024-11-21 08:29] VITALS: BP 131/69; PULSE 74; RESP 16; TEMP 36.7; O2SAT 97; BMI 30.9
--- OUTSIDE RECORDS SUMMARY | 2024-11-21 08:42 | XMS_ITS | Encounter Summary ---
Author Organization [employer] Address [address] [facility] 7[address] [place] [address] Care Team Providers Care Dirt Shoveler Name Role Phone Unavailable Primary Care Provider Unavailabl e Reason for Visit * Reason Onset Date Comments Dr. Moriah hursts new partials 09/02/2024 Encounter Details Date Type Department Care Team (Late st Contact Info) Description 09/02/2024 Telephone [facility] [address] [place] [address] [phone] Francisco Black BDS [address] [place], [place] [phone] Dr. Moriah hursts new partials Social History Tobacco Use Types [...] Care Team (Late st Contact Info) Description 12/08/2024 9:00 AM EDT Office Visit [facility] [address] [place] [address] [phone] Vero Schaefer [address] [place], [place] [phone] documented as of this encounter Visit Diagnoses Not on filedocumented in this encounter
--- OUTSIDE RECORDS SUMMARY | 2024-11-21 08:42 | XMS_ITS | Clinical Summary ---
Author Organization [employer] Address [address] [facility] 7t [place] [address] Care Team Providers Care Pipe Production Worker Name Role Phone Unavailable Primary Care Provider Unavailabl e Encounters Date Type Department Care Team Description 09/02/2024 Telephone [facility] [address] [place] [phone] Black BDS [address]. Devi comp wants [...] Description 12/08/2024 9:00 AM EDT Office Visit [facility] [address] [place] [phone] Vero Schaefer [address] [place] [address] [phone] Health Maintenance Due Date Last Done Comments CT Colonography 1968 Colonoscopy 1968 Colorectal Cancer Screening 1968 Dental Oral Exam 1968 Dental Prophylaxis 1968 Dental X-Ray: Bitewings 1968 Dental X-Ray: Full Mouth 1968 Depression Screening 1968 FIT DNA/Cologuard 1968 [...]
== END 2024-11-21 09:03 | disposition home or self-care (01) ==
LOC: HO.HMCFM 08:23
PROVIDERS: PCP Nurse Practitioner Family; Visit Provider Nurse Practitioner Family
DX: R10.9 Unspecified abdominal pain (principal); Z09 Encounter for follow-up examination after completed treatment for conditions other than malignant neoplasm; I31.39 Other pericardial effusion (noninflammatory)

== ENCOUNTER → 2024-11-21 08:22 | Outpatient (BNVA) | payer OTHER, SELFPAY | PROVIDERS: PCP Nurse Practitioner Family; Visit Provider Nurse Practitioner Family | DX: Z09 Encounter for follow-up examination after completed treatment for conditions other than malignant neoplasm (principal); R10.9 Unspecified abdominal pain; I31.39 Other pericardial effusion (noninflammatory) | CPT/HCPCS: 99212 ==

== ENCOUNTER 2025-04-04 09:49 | Outpatient (REF) | payer OTHER, SELFPAY ==
--- OUTSIDE RECORDS SUMMARY | 2025-04-04 10:33 | XMS_ITS | Clinical Summary ---
Author Organization [employer] Address [address] [facility] 7t [place] [address] Care Team Providers Care Head Orthopedic Team Physician Name Role Phone Unavailable Primary Care Provider Unavailabl e Allergies No known active allergies Medications buPROPion XL (Wellbutrin XL) 150 MG 24 hr tablet Take 150 mg by mouth in the morning. 4 Active FLUoxetine (PROzac) 20 MG capsule TAKE 1 CAPSULE BY MOUTH ONCE A DAY TO BE TAKEN WITH 40 MG CAPSULE (DAILY DOSE: 60 MG) 5 Active simvastatin (Zocor) 20 MG tablet TAKE 1 TABLET BY MOUTH AT BEDTIME FOR 90 DAYS INSURANCE REQUIRES A 90 DAY SUPPLY 5 Active Active Problems No known active problems Social History Tobacco Use Types Packs/Day Years Used Date Smoking Tobacco: Never Smokeless Tobacco: Never Tobacco Cessation:Counseling Given: Not Answered Comments Unknown Sex and Gender Information Value Date Recorded Sex Assigned at Female 09/02/2024 10:38 AM EST Legal Sex Female 10:33 AM EST Gender Identity Female 09/02/2024 10:38 AM EST Sexual Orientation Choose not to disclose 2024 10:38 AM EST Last Filed Vital Signs Vital Sign Reading Time Taken Comments Blood Pressure 130/88 12/08/2024 9:15 AM EDT Pulse 86 12/08/2024 9:15 AM EDT Temperature - - Respiratory Rate - - Oxygen Saturation - - Inhaled Oxygen Concentration - - Weight - - Height - - Body Mass Index - - Plan of Treatment Health Maintenance Due Date Last Done Comments CT Colonography 1968 Colonoscopy 1968 Colorectal Cancer Screening 1968 Dental Prophylaxis 1968 Depression Screening 1968 FIT DNA/Cologuard 1968 FIT 1968 FOBT 1968 HIV Screening 1968 SDOH Screening 1968 Sigmoidoscopy 1968 Disability Screening 1968 Alcohol/Substance Use Screening 1980 Hepatitis C Screening 1986 DTaP/Tdap/Td Vaccines (1 - Tdap) 1987 Hepatitis B Vaccines (1 of 3 - 19+ 3-dose series) 1987 Pap Smear 1989 Cervical Cancer Screening 1998 HPV/Cotest 1998 Mammogram 2008 Pneumococcal Vaccine: 50+ Ye ars (1 of 1 - PCV) 2018 Zoster Vaccines (1 of 2) 2018 COVID-19 Vaccine (1 - 2023-2 5 season) 2024 Influenza Vaccine (#1) 2025 Dental Oral Exam 06/11/2025 12/08/2024 Dental X-Ray: Bitewings 12/09/2025 12/08/2024 Tobacco Screening 12/20/2025 12/20/2024 Dental X-Ray: Full Mouth 12/10/2027 12/08/2024 RSV Patients and Pa tients Aged 60 [...] patient's age to complete this topic Meningococcal B Vaccine Aged Out No l onger eligible based on patient's age to complete this topic Meningococcal Vaccine Aged Out No ale giovanni eligible based on patient's age to complete this topic RSV under 20 months Aged Out No longe r eligible based on patient's age to complete this topic Rotavirus Vaccines Aged Out No longer eligible based on patient's age to complete this topic Procedures Procedure Name Priority Date/Time Associated Diagnosis Comments INTRAORAL - COMPLETE SERIES OF RADIOGRAPHIC IMAGES Routine 12/08/2024 9:00 AM EDT COMPREHENSIVE ORAL EVALUATION - NEW OR ESTABLISHED PATIENT Routine 12/08/2024 9:00 AM EDT from Last 3 Months or Most Recently Relevant to Health Maintenance Insurance [facility] MEDICAID STAND ADULT [place] [id number]
--- OUTSIDE RECORDS SUMMARY | 2025-04-04 10:33 | XMS_ITS | Encounter Summary ---
Author Organization [employer] Address [address] [facility] 7t [place] [address] Care Team Providers Care Furnace And Wash Equipment Operator Name Role Phone Unavailable Primary Care Provider Unavailabl e Reason for Visit * Reason Onset Date Comments Dr. Moriah mcnair new partials 09/02/2024 Encounter Details Date Type Department Care Team (Late st Contact Info) Description 09/02/2024 Telephone [facility] [address] [place], [place] [phone] Francisco Black BDS [address] [place], [place] [phone] Dr. Moriah hursts new partials Social History [...] documented in this encounter Plan of Treatment Not on file documented as of this encounter Visit Diagnoses Not on filedocumented in this encounter
[2025-04-04 11:12] LABS: MANUAL DIFF FLAG NO
[2025-04-04 11:22] LABS: Hematocrit 38.2 % (37.0-47.0); Hemoglobin 12.7 g/dl (12.0-16.0); Imm Gran Abs Auto 0.03 X10*3/uL (0.00-0.03); Imm Gran Pct Auto 0.4 % (0.0-0.4); Lymphocytes Absolute Auto 2.0 X10*3/uL (1.2-4.9); Mean Corpuscular HGB Conc 33.2 g/dl (31.0-35.0); Mean Corpuscular Hemoglobin 29.7 pg (27.0-33.0); Mean Corpuscular Volume 89.5 fL (80.0-98.0); NRBC Abs Auto 0.000 X10*3/uL (0.0-0.012); NRBC Pct Auto 0.0 /100WBC (0.0-0.2); Platelet Count 214 X10*3/uL (160-400); Red Blood Count 4.27 X10*6/uL (4.20-5.50); White Blood Count 7.0 X10*3/uL (4.8-10.8)
[2025-04-04 12:13] LABS: Alanine Aminotransferase 25 U/L (0-31); Albumin Level 4.4 g/dL (3.5-5.0); Alkaline Phosphatase 66 U/L (39-117); Anion Gap 12 (12-20); Aspartate Amino Transferase 28 U/L (5-31); Blood Urea Nitrogen 13 mg/dL (9-16); Calcium 8.8 mg/dL (8.4-10.2); Carbon Dioxide 26 mmol/L (22-29); Chloride 106 mmol/L (96-108); Cholesterol 142 mg/dL (<200); Estimated Glomerular Filt Rate > 60; HDL Cholesterol 36 mg/dL (>40); Potassium 4.3 mmol/L (3.3-5.1); Sodium 140 mmol/L (135-145); Total Protein 6.8 g/dL (6.5-8.0); Triglycerides 114 mg/dL (<150)
[2025-04-04 14:16] LABS: Appearance Urine Clear; Glucose Urine UA Negative (Negative); PH >= 9.0 (5.0-9.0); Specific Gravity - Urine 1.020 (1.005-1.025)
== END 2025-04-04 09:50 | disposition home or self-care (01) ==
LOC: HO.WFDLDS 09:49
PROVIDERS: Visit Provider Nurse Practitioner Family
DX: Z00.00 Encounter for general adult medical examination without abnormal findings (principal)
CPT/HCPCS: 36415; 80053; 80061; 81003; 82043; 82306; 82570; 84443; 85025

== ENCOUNTER 2025-06-30 10:33 | Outpatient (AMB) | payer OTHER, SELFPAY ==
--- NOTE | 2025-06-30 10:34 | A.OFFVIS_ITS ---
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 At today's visit she states that for the last six months she has had lower back pain that radiates into her hips and down both legs. She noted that her legs feel very heavy like cement while going up the stairs and that her legs have a constant burning sensation. She states that she went to another practice [facility] and had X Ray's done and she is here today for a second opinion. Patient states that at the clinic she was given muscle relaxers and pain medication. She noted that ever since the pain started she has not slept a full night due to the constant pain. She reports that she has done at home exercises but has not attend physical therapy. Patient would like to discuss an MRI. Pain Score- 7 Allergies No Known Allergies Allergy (Verified 11/21/24 08:53) Medication List - Last Reconciled 06/30/25 by Kaylee Westfall MD bupropion HCl XL 150 mg PO QAM cyclobenzaprine 10 mg PO BEDTIME fluoxetine 80 mg PO QAM fluoxetine 20 mg PO DAILY hydroxyzine pamoate 25 mg PO BID PRN meloxicam 15 mg PO DAILY simvastatin 20 mg PO BEDTIME HPI Comments Details: 8 months of pain, no inciting injuries. 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 Went to ortho in [place]. Xrays done which are not available for my review. No PT yet. MRI tried to be obtained but denied by insurance. She's been going to chiropractor, went November to March. MRI 6 years ago, similar pain, showed pinched nerve . She did yoga and own exercises. Nowadays lower back pain, across lower back, goes to both hip area, dull type, down to toes. Toes get numb. Feels like fire or cement when going up stairs. No bladder/bowel changes. [facility] Medical History (Updated 06/30/25 @ 11:05 by Kaylee Westfall MD) No pertinent family history No pertinent past medical history Surgical History No pertinent past surgical history Family History (Updated 08/20/24 @ 10:44 by Manuela Del Angel MA) Sister Substance abuse FH: mental illness Mother FH: mental illness Social History Housing: House Patient Tobacco Use Status: Never used Tobacco e-Cigarette/Vaping Use: Never Used Substance Use Type: Marijuana service: No Current occupational status: disabled Current occupation: Disability Current occupational exposures/hazards: No Cognitive needs: No Hearing needs: No Vision needs: No Review of Systems Const All systems reviewed & are unremarkable except as noted in HPI and below Physical Exam Exam Exam: Constitutional: Patient appears to be in no acute distress, well nourished and well developed. Patient was appropriately conversant and oriented. Good historian. MSK: No specific abnormalities found on inspection of the spine and all extremities. Diffusely tender on lumbar paraspinals, SI joints and GT. Lumbar ROM was full. Bilateral hip, knee and ankle ROM WNL. No ligamentous laxity or crepitance. No increased effusion. Straight-leg raising test negative. FABERE test positive bilateral. Strength is 5/5 in all muscle groups tested. No increased tone noted. Neurological: Neurologic examination of the upper and lower extremities was nonfocal with intact sensation, muscle stretch reflexes and without focal motor deficits . Bernal?s negative bilaterally. Babinski was down going bilaterally. Clonus was negative. Gait is non-antalgic without loss of balance. Vital Signs: BMI result Body Mass Index 31.1 Results Reviewed Results Reviewed: We are obtaining x-ray results from Orthopedics in [place] I reviewed records from the following: [facility] Assessment & Plan Assessment & Plan (1) Lower back pain: Code(s): M54.50 - Low back pain, unspecified Category: Medical Qualifiers: Chronicity: unspecified Back pain laterality: bilateral Sciatica presence: with sciatica Sciatica laterality: bilateral sciatica Qualified Code(s): M54.42 - Lumbago with sciatica, left side; M54.41 - Lumbago with sciatica, right side (2) Sacroiliac joint dysfunction of both sides: Code(s): M53.3 - Sacrococcygeal disorders, not elsewhere classified Category: Medical Plan Lower back pain, at least 8 months, without red flags or neurologic deficits. Diffusely tender including on SI joints. Obtaining past lumbar x-rays from ortho Clinic in [place]. Previous MRI order by them was denied by insurance. Discussed with patient the need and importance to start physical therapy. Referral placed. If not improved after PT, we can reorder MRI. Assessment and plan discussed with patient, and patient was agreeable. All questions were answered thoroughly. Follow up 2 months. Call sooner if needed. Kaylee Westfall MD, RIGOBERTO Board Certified, [place] Board [employer] and Rehabilitation (ABPMR) Board Certified, [place] Board of Electrodiagnostic Medicine (ABEM) Orders: Orders PT Evaluation and Treatment Today M53.3 - Sacrococcygeal disorders, not elsewhere classified, M54.50 - Low back pain, unspecified Coding Level of Care Code New Pt Level 4 (62561) Diagnoses Bilateral low back pain with bilateral sciatica, unspecified chronicity M54.42; M54.41 Chronicity: unspecified Back pain laterality: bilateral Sciatica presence: with sciatica Sciatica laterality: bilateral sciatica Sacroiliac joint dysfunction of both sides M53.3
[2025-06-30 10:44] VITALS: BMI 31.1
--- OUTSIDE RECORDS SUMMARY | 2025-06-30 11:16 | XMS_ITS | Encounter Summary ---
Author Organization [employer] Address [address] [facility] [address] [place] [address] Care Team Providers Care Nuclear Powerplant Mechanic Name Role Phone Unavailable Primary Care Provider Unavailabl e Encounter Details Date Type Department Care Team (Latest Contact Info) Description 06/27/2025 Travel Social History Tobacco Use Types Packs/Day Years Used Date Smoking Tobacco: Never Smokeless Tobacco: Never Comments Unknown Sex and Gender Information Value Date Recorded Sex Assigned at Female 09/02/2024 10:38 AM EST Legal Sex Female 10:33 AM EST Gender Identity Female 09/02/2024 10:38 AM EST Sexual Orientation Choose not to disclose 2024 10:38 AM EST documented as of this encounter Plan of Treatment Upcoming Encounters Date Type Department Care Team (Late st Contact Info) Description 07/04/2025 8:00 AM EST Office Visit [facility] [address] [place], [place] [phone] Amaury Dominique, FRANKLIN [address] [place] [address] documented as of this encounter Visit Diagnoses Not on filedocumented in this encounter
--- OUTSIDE RECORDS SUMMARY | 2025-06-30 11:16 | XMS_ITS | Encounter Summary ---
Author Organization [employer] Address [address] [facility] 7 [place] [address] Care Team Providers Care Chainstitch Tunnel Elastic Operator Name Role Phone Unavailable Primary Care Provider Unavailabl e Reason for Visit * Reason Onset Date Comments Dr. Moriah mcnair new partials 09/02/2024 Encounter Details Date Type Department Care Team (Late st Contact Info) Description 09/02/2024 Telephone [facility] [address] [place] [address] [phone] Francisco Black BDS [address] [place], [place] [phone] Dr. Moraih mcduffie wants new partials Social History Tobacco [...] Encounters Date Type Department Care Team (Late Contact Info) Description 07/04/2025 8:00 AM EST Office Visit [facility] [address] [place] [address] [phone] Amaury Dominique DMD [address] [place] [address] documented as of this encounter Visit Diagnoses Not on filedocumented in this encounter
--- OUTSIDE RECORDS SUMMARY | 2025-06-30 11:16 | XMS_ITS | Clinical Summary ---
Author Organization [employer] Address [address] [facility] 7t [place] [address] Care Team Providers Care Floor Grinder Name Role Phone Unavailable Primary Care Provider [...] Active Active Problems No known active problems Encounters Date Type Department Care Team Description 06/27/2025 Travel 05/08/2025 Travel 04/26/2025 8:00 AM EDT Office Visit [facility] [address] [place] [phone] Francisco Black BDS Dental caries (Primary Dx) 04/19/2025 Travel from Last 3 Months Social History Tobacco [...] Sign Reading Time Taken Comments Blood Pressure 138/94 04/26/2025 8:14 AM EDT Pulse 86 12/08/2024 9:15 AM EDT Temperature - - Respiratory Rate - - Oxygen Saturation - - Inhaled Oxygen Concentration - - Weight - - Height - - Body Mass Index - - Plan of Treatment Upcoming Encounters Date Type Department Care Team (Late st Contact Info) Description 07/04/2025 8:00 AM EST Office Visit [facility] [address] [place] [phone] Catina Amaury, DMD [address] [place] [address] Health Maintenance Due Date Last Done Comments [...] of 2) 2018 COVID-19 Vaccine (1 - 2024-2 6 season) 2025 Influenza Vaccine (#1) 2025 Dental Oral Exam 06/11/2025 12/08/2024 Dental X-Ray: Bitewings 12/09/2025 12/08/2024 Tobacco Screening 04/26/2026 04/26/2025 Dental X-Ray: Full Mouth 12/10/2027 12/08/2024 RSV [...] Procedure Name Priority Date/Time Associated Diagnosis Comments CASE PRESENTATION, DETAILED AND EXTENSIVE TREATMENT PLANNING Routine 04/26/2025 8:00 AM EDT 29 INTRAORAL - PERIAPICAL FIRST RADIOGRAPHIC IMAGE Routine 04/26/2025 8:00 AM EDT 29 LIMITED ORAL EVALUATION - PROBLEM FOCUSED Routine 04/26/2025 8:00 AM EDT INTRAORAL - COMPLETE SERIES OF RADIOGRAPHIC IMAGES Routine 12/08/2024 9:00 AM EDT COMPREHENSIVE ORAL EVALUATION - NEW OR ESTABLISHED PATIENT Routine 12/08/2024 9:00 AM EDT from Last 3 Months or Most Recently Relevant to Health Maintenance Insurance [facility] STAND ADULT
== END 2025-06-30 11:26 | disposition home or self-care (01) ==
LOC: HO.HOS 10:33
PROVIDERS: PCP Nurse Practitioner Family; Visit Provider Physical Medicine & Rehabilitation
DX: M54.42 Lumbago with sciatica, left side (principal); M54.41 Lumbago with sciatica, right side; M53.3 Sacrococcygeal disorders, not elsewhere classified
CPT/HCPCS: 99204

== ENCOUNTER → 2025-06-30 10:33 | Outpatient (BNVA) | payer OTHER, SELFPAY | PROVIDERS: PCP Nurse Practitioner Family; Visit Provider Physical Medicine & Rehabilitation | DX: M54.42 Lumbago with sciatica, left side (principal); M53.3 Sacrococcygeal disorders, not elsewhere classified; M54.41 Lumbago with sciatica, right side | CPT/HCPCS: 99202 ==

== ENCOUNTER 2025-07-17 13:05 | Outpatient (AMB) | payer OTHER, SELFPAY ==
--- NOTE | 2025-07-17 13:07 | A.OFFPC_ITS ---
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: No Is last menstrual period known: No Post menopausal: No Patient : No Allergies No Known Allergies Allergy (Verified 07/17/25 13:26) Medication List - Last Reconciled 07/17/25 by Philly Goldberg CNP bupropion HCl XL 150 mg PO QAM fluoxetine 80 mg PO QAM fluoxetine 20 mg PO DAILY hydroxyzine pamoate 25 mg PO BID PRN simvastatin 20 mg PO BEDTIME Tobacco use date assessed: 07/17/25 Dental Screening Dental Screen Date: 07/17/25 Did you have a dental visit in the last 12 months?: Yes Did you have a dental problem in the last 6 months where you did not have access to dental care?: No Was dental information given to patient?: Patient has dentist HPI HPI Comments History of Present Illness Details 55-year-old female presents for an exten ded physical exam. She admits to taking her medications as prescribed without adverse reactions. Acute issue(s) - Reports persistent heartburn r/t melox icam she was was taking for low pain pain, prescribed by ortho. She has been taking omeprazole and gaviscon for the past 7 days without relief. Past Medical History - Hyperlipidemia, fibromyalgia, OA right knee, LBP, anxiety, depression, bipolar, PTSD, and agoraphobia Social History - Nonsmoker. Does not vape. Does not dri nk alcohol. Smokes a couple of hits of cannabis nightly. - Has been making healthy dietary choice s. Exercises routinely. Generally sleep well Health maintenance - Last eye exam was 3 months ago with [facility] - Last dental visit was 3 weeks ago - Last tetanus vaccine unsure, but likel y more than 10 years ago; received Tdap vaccine today - Has not been vaccinated for shingles. Encouraged to get the vaccinated for shingles at the local pharmacy - Has not been vaccinated for the flu ; declines vaccination - Last pap smear test was several years ago: Normal. Referred to [facility] application support administrator for a Pap smear test - Last mammogram was 5-6 years ago: [facility] Mammogram ordered - Last colonoscopy unknown but states wi thin the past 10 years: Normal. Referred to [facility] gastroenterology Specialists - [facility] physiatry - [facility] psychiatry [facility] Medical History No pertinent family history No pertinent past medical history Surgical History No pertinent past surgical history Family History Sister Substance abuse FH: mental illness Mother FH: mental illness Social History (Updated 07/17/25 @ 13:15 by HEATHER Duarte) Housing: House Patient Tobacco Use Status: Never used Tobacco e-Cigarette/Vaping Use: Never Used Substance Use Type: Marijuana service: No Current occupational status: disabled Current occupation: Disability Current occupational exposures/hazards: No Cognitive needs: No Hearing needs: No Vision needs: No Questionnaire PHQ-9 Over the last 2 weeks, how often have you been bothered by any of the following problems? 1. Little interest or pleasure in doing things: several days 2. Feeling down, depressed, or hopeless: several days 3. Trouble falling or staying asleep, or sleeping too much: not at all 4. Feeling tired or having little energy: several days 5. Poor appetite or overeating: not at all 6. Feeling bad about yourself - or that you are a failure or have let yourself or your family down: several days 7. Trouble concentrating on things, such as reading the newspaper or watching television: more than half the days 8. Moving or speaking so slowly that other people could have noticed. Or the opposite - being so fidgety or restless that you have been moving around a lot more than usual: several days 9. Thoughts that you would be better off or of hurting yourself in some way: not at all Total score: 7 Depression Screening Interpretation: Positive Depression Screening Follow-up: Existing condition and In treatment Depression Screening Done: Yes 51816 - PHQ-9 Billing: Yes Source: Developed by Drs. Donnie Ohara, Nelsy Campa, Zafar Tejeda and colleagues, with an educational serg from [employer]. Thrive Questionnaire Date Thrive assessed: 07/17/25 I am a: Patient What is your living situation today?: I have a steady place to live Within the past 12 months, did the food you bought not last and you didn't have the money to get more?: Never true Within the past 12 months, did you worry whether your food would run out before you got money to buy more?: Never true Do you have trouble paying for medicines?: No Do you have trouble getting transportation to medical appointments?: No Do you have trouble paying your heating and electricity bill?: No Do you have trouble taking care of your child, family member or friend?: No Do you have trouble with day-to-day activities such as bathing, preparing meals, shopping, managing finances, etc.?: No Are you currently unemployed and looking for a job?: Yes Are you interested in more education?: No Please select the resources that you would like help with: None Currently or been in a relationship where the following occur: I choose not to answer THRIVE Score: 0 AUDIT C Alcohol Use Questionnaire (AUDIT-C) 1. How often do you have a drink containing alcohol?: Never 3. How often do you have six or more drinks on one occasion?: Never Total Score: 0 Score Reviewed/Action Taken: Yes MEAGAN-7 AMB Questionnaire MEAGAN-7 Date MEAGAN - 7 assessed: 07/17/25 Feeling nervous, anxious, or on edge: 1 = Several days Not being able to stop or control worryin = Several days Worrying too much about different things: 1 = Several days Trouble relaxin = Not at all Being so restless that it is hard to sit still: 0 = Not at all Becoming easily annoyed or irritable: 1 = Several days Feeling afraid as if something awful might happen: 0 = Not at all Total MEAGAN-7 score (0-4 normal; 5-9 mild; 10-14 moderate; 15-21 severe): 4 Source: Developed by Drs. Donnie Ohara, Nelsy Campa, Zafar Tejeda and colleagues, with an educational serg from [employer]. MEAGAN-7 Assessment Billing MEAGAN-7 Assessment Tool: MEAGAN-7 Assessment 54794 Review of Systems Const Details: Denies chills, Denies fatigue, Denies fever(s), Denies headache(s) and Denies weakness HEENT Denies change in vision, Denies dizziness, Denies headache(s), Denies hearing loss, Denies nasal congestion, Denies sinus pain, Denies sinus pressure and Denies sore throat Card Denies chest pain, Denies lightheadedness, Denies dyspnea and Denies other (palpitations) Resp Denies cough, Denies dyspnea and Denies wheezing GI Denies abdominal pain, Denies melena, Denies hematochezia, Denies change in bowel habits, Denies dyspepsia and Denies nausea Denies hematuria and Denies dysuria Musc Denies abnormal gait, Denies myalgias, Denies arthralgias, Denies numbness and Denies tingling Skin/Breast Denies rash, Denies unusual bruising and Denies wounds Neuro Denies abnormal gait, Denies dizziness, Denies headache(s), Denies memory loss, Denies numbness, Denies Sensory deficit (Neuro), Denies tingling and Denies weakness Psych Denies anxiety, Denies depression and Denies memory loss Endo Denies cold intolerance, Denies fatigue, Denies heat intolerance, Denies polydipsia and Denies polyuria Marlon/Lymph Denies easy bleeding and Denies easy bruising Aller/Immun Denies wheezing Physical exam (Primary Care) Vital Signs: Last Vital Signs Temp 98.3 F 07/17/25 13:15 Pulse 75 07/17/25 13:15 Resp 16 07/17/25 13:15 BP 130/72 07/17/25 13:15 Pulse Ox 98 07/17/25 13:15 Oxygen Delivery Method Room Air 07/17/25 13:15 BMI result Body Mass Index 32.9 Tobacco/Smoking Status: Tobacco use Status Tobacco use date assessed 07/17/25 07/17/25 13:15 Patient Tobacco Use Status Never used Tobacco 07/17/25 13:15 e-Cigarette/Vaping Use Never Used 07/17/25 13:15 PHQ-9: PHQ-9 Score PHQ-9: Total score 7 07/17/25 14:08 Depression Screening Interpretation: Positive Depression Screening Follow-up: Existing condition and In treatment Thrive Assessment: Date of Thrive Assessment Date Thrive assessed 07/17/25 07/17/25 13:21 Currently or been in a relationship where the following occur: I choose not to answer Const Other: General: no acute distress, well developed, alert and awake Nutritional Appearance: well nourished Orientation/consciousness: patient oriented x3 [facility] Head: Yes normocephalic and Yes atraumatic Ears: hearing grossly normal bilaterally and TM's normal bilaterally General nose exam: Normal external nose present and Normal nares present Mouth: Normal oral and palatal mucosa present and moist mucous membranes Teeth and gingiva: dentition normal Throat: Yes oropharynx normal Eyes Pupils: Equal, round and reactive pupils present and Pupil accommodation reflex normal EOM: EOMs intact bilaterally Neck Neck: Yes normal visual inspection, Yes no lymphadenopathy and Yes trachea midline Thyroid: Thyroid normal Carotids: no bruits Lymphatic: no lymphadenopathy noted Chest Chest palpation & inspection: normal inspection of the chest Resp Effort & Inspection: normal respiratory effort Auscultation: clear to auscultation bilaterally Cardio Rate: regular rate Rhythm: regular rhythm Heart sounds: S1 normal heart sound present, S2 normal heart sound present, no gallops, no murmurs and no rubs Bruits: no abdominal aortic bruits and no carotid bruits GI Palpation (GI): No Abdominal aortic bruit present, Soft to palpation, epigastric tenderness, No hepatosplenomegaly present and No Rebound tenderness present Auscultation: normal bowel sounds General: Yes no CVA tenderness Back/Spine/Pelvis Back: no CVA tenderness Cervical Spine: cervical ROM normal and No Cervical spine tenderness Thoracic/Lumbar Spine: thoraco-lumbar ROM normal, No pain with thoraco-lumbar ROM, No thoracic spinal tenderness and No lumbar spinal tenderness Skin General: warm and dry. Normal skin color. Normal skin turgor Lesions: no lesions Rashes: no rashes Trauma: no lacerations or abrasions Wounds: no wounds Nails: normal Neuro General: patient oriented x3, gait normal and CN's II-XI intact bilaterally Cranial nerves: Yes Equal, round and reactive pupils present Cognition (Neuro): normal cognition Gait exam (Neuro): Normal gait present Motor exam (neuro): 5/5 motor strength present throughout Sensory Exam: No Sensory deficit (Neuro) Deep tendon reflexes (DTR's): Right patellar reflex intensity grade: 2+ and Left patellar reflex intensity grade: 2+ Extrem General: Yes normal to inspection, No edema and No calf tenderness Psych Appearance: grossly normal Affect: normal affect Attitude: cooperative Thought process: Normal thought process present Immunizations Boostrix Tdap 2.5 Lf unit-8 mcg-5 Lf/0.5 mL intramuscular syringe Performing Provider: Philly Goldberg CNP Performing Location: [facility] Family Medicine Administered by: Matthieu Lagos RN on 07/17/25 14:07 Dose Route Admin Location Dispensed Lot Number Expiration Date NDC Floor Care Technician 0.5 mL IM Right Deltoid 0.5 mL [id number] 01/20/28 02468-742-39 [employer] Total Dispensed Waste 0.5 mL 0 % VIS Given Date VIS Provided VIS Publication Date 07/17/25 Single Vaccine 21 Eligibility Eligibility Date Funding Source Not [facility] Eligible 07/17/25 Private Coding Level of Care Code Est Pt Level 3 (99366) New Pt Prev Care 40-64y(12222) Diagnoses Normal physical examination, routine Z00.00 Heartburn R12 Colon cancer screening Z12.11 Papanicolaou smear for cervical cancer screening Z12.4 Breast cancer screening by mammogram Z12.31 Additional Codes MEAGAN-7 Assessment Billing - MEAGAN-7 Assessment Tool: MEAGAN-7 Assessment 97203 ([id number]) PHQ-9 - 18553 - PHQ-9 Billing: Yes ([id number]) Assessment & Plan Assessment & Plan (1) Normal physical examination, routine: Code(s): Z00.00 - Encounter for general adult medical examination without abnormal findings Category: Medical Plan: No significant functional limitations noted. Continue current treatment management. Healthy diet and routine exercise encouraged. Follow-up with specialists as planned. Return in 2 months for transfer of care with a new provider within the practice or sooner with symptoms or concerns. Verbalized understanding and agreed with the plan. (2) Heartburn: Code(s): R12 - Heartburn Category: Medical Plan: Reports persistent heartburn r/t meloxicam she was was taking for low pain pain, prescribed by ortho. She has been taking omeprazole and gaviscon for the past 7 days without relief. Epigastric tenderness to palpation. Pantoprazole 20 mg daily ordered; advised to take as prescribed. Healthy diet encouraged. Advised to avoid NSAIDs. Follow-up with worsening or new symptoms. Verbalized understanding and agreed with the plan. (3) Colon cancer screening: Code(s): Z12.11 - Encounter for screening for malignant neoplasm of colon Category: Medical Plan: Last colonoscopy unknown but states within the past 10 years: Normal. Referred to [facility] gastroenterology. (4) Papanicolaou smear for cervical cancer screening: Code(s): Z12.4 - Encounter for screening for malignant neoplasm of cervix Category: Medical Plan: Last pap smear test was several years ago: Normal. Referred to [facility] application support administrator for a Pap smear test. (5) Breast cancer screening by mammogram: Code(s): Z12.31 - Encounter for screening mammogram for malignant neoplasm of breast Category: Medical Plan: Last mammogram was 5-6 years ago: Normal. Mammogram ordered. Orders: Orders TDaP Immunization Today Z23 - Encounter for immunization MM screening mammo BI Today Z12.31 - Encounter for screening mammogram for malignant neoplasm of breast Referrals Gastroenterology Referral Z12.11 - Encounter for screening for malignant neoplasm of colon [employer] Referral Z12.4 - Encounter for screening for malignant neoplasm of cervix Medications: New pantoprazole 20 mg PO DAILY 30 tabs 0RF 30 days
[2025-07-17 13:15] VITALS: BP 130/72; PULSE 75; RESP 16; TEMP 36.8; O2SAT 98; BMI 32.9
--- OUTSIDE RECORDS SUMMARY | 2025-07-17 21:49 | XMS_ITS | Encounter Summary ---
Author Organization [employer] Address [address] [place] [address] [address] [place] [address] Care Team Providers Care Shipping Lead Person Name Role Phone Unavailable Primary Care Provider Unavailabl e Reason for Visit * Reason Onset Date Comments Dr. Moriah mcnair new partials 09/02/2024 Encounter Details Date Type Department Care Team (Late st Contact Info) Description 09/02/2024 Telephone [facility] [address] [place], [place] [phone] Francisco Black BDS [address] [place], [place] [phone] Dr. Moriah hursts new partials Social History [...] Care Team (Late st Contact Info) Description 09/05/2025 8:00 AM EST Office Visit [facility] [address] [place], [place] [phone] Magda Downey documented as of this encounter Visit Diagnoses Not on filedocumented in this encounter
--- OUTSIDE RECORDS SUMMARY | 2025-07-17 21:49 | XMS_ITS | Clinical Summary ---
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 Name Role Phone Unavailable Primary Care Provider [...] Encounters Date Type Department Care Team Description 07/04/2025 8:00 AM EST Office Visit [facility] [address] [place] [id number] Amaury Dominique DMD 06/27/2025 Travel 05/08/2025 Travel 04/26/2025 8:00 AM EDT Office Visit [facility] [address] [place] [id number] Francisco Black BDS Dental caries (Primary Dx) [...] Sign Reading Time Taken Comments Blood Pressure 136/80 07/04/2025 8:06 AM EST Pulse 64 07/04/2025 8:06 AM EST Temperature - - Respiratory Rate - - Oxygen Saturation - - Inhaled Oxygen Concentration - - Weight - - Height - - Body Mass Index - - Plan of Treatment Upcoming Encounters Date Type Department Care Team (Late st Contact Info) Description 09/05/2025 8:00 AM EST Office Visit [facility] [address] [place], [place] [phone] Magda Downey Health Maintenance Due Date Last Done Comments [...] Vaccines (1 of 2) 2018 COVID-19 Vaccine ( - 2024-2 6 season) 2025 Influenza Vaccine (#1) 2025 Dental Oral Exam 06/11/2025 12/08/2024 Dental X-Ray: Bitewings 12/09/2025 12/08/2024 Tobacco Screening 07/04/2026 07/04/2025 Dental X-Ray: Full Mouth 12/10/2027 12/08/2024 RSV [...] PRESENTATION, DETAILED AND EXTENSIVE TREATMENT PLANNING Routine 07/04/2025 8:00 AM EST 4 M RESIN-BASED COMPOSITE - 1 SURF, POSTERIOR Routine 07/04/2025 8:00 AM EST 29 B(V) RESIN-BASED COMPOSITE - 1 SURF, POSTERIOR Routine 07/04/2025 8:00 AM EST CASE PRESENTATION, DETAILED AND EXTENSIVE TREATMENT PLANNING [...] Most Recently Relevant to Health Maintenance Insurance [facility]AL-[facility] MEDICAID STAND ADULT
== END 2025-07-17 13:52 | disposition home or self-care (01) ==
LOC: HO.HMCFM 13:05
PROVIDERS: PCP Nurse Practitioner Family; Visit Provider Nurse Practitioner Family
DX: Z00.00 Encounter for general adult medical examination without abnormal findings (principal); R12 Heartburn; Z12.31 Encounter for screening mammogram for malignant neoplasm of breast; Z23 Encounter for immunization

== ENCOUNTER → 2025-07-17 13:05 | Outpatient (BNVA) | payer OTHER, SELFPAY | PROVIDERS: PCP Nurse Practitioner Family; Visit Provider Nurse Practitioner Family | DX: Z00.00 Encounter for general adult medical examination without abnormal findings (principal); R12 Heartburn | CPT/HCPCS: 90471; 90715; 96127; 99396 ==